=== PATIENT | male | born 1970 | race Caucasian/White ===

== ENCOUNTER 2017-06-27 16:27 | Emergency (ER) | payer BC ==
[~2017-06-27] VITALS: Ht 177.8 cm; Wt 93.8 kg
[2017-06-27 16:30] VITALS: TEMP 36.8; Ht 177.8 cm; Wt 93.8 kg
[2017-06-27] MEDS ORDERED: CEFAZOLIN SOD 1000MG/55 ML D5W IV STA (17:10)
[2017-06-27] MEDS ORDERED: MoRPHine SULFATE 4 MG/ML 1 ML CARP\\VIAL IV STA (17:10)
[2017-06-27 17:35] LABS: BASO % 0.4 %; BASO ABS # 0.05 K/uL (0-0.2); COMPLETE YES; EOS % 0.4 %; HEMATOCRIT 46.5 % (42-52); IG% 0.2 %; LYMPH % 18.1 %; LYMPH ABS # 2.17 K/uL (1.2-3.4); MEAN CELL VOLUME 89.8 fL (80-100); MEAN CORPUSCULAR HEMOGLOBIN 31.7 pg (25-34); MEAN CORPUSCULAR HGB CONC 35.3 g/dl (32-36); MEAN PLATELET VOLUME 9.7 fL (7.4-10.4); MONO % 5.7 %; NEUT % 75.2 %; PLATELET COUNT 218 K/uL (130-400); RED BLOOD COUNT 5.18 M/uL (4.7-6.1); WHITE BLOOD COUNT 11.97 K/uL (4.8-10.8)
[2017-06-27 17:52] LABS: BUN/CREATININE RATIO 15.1 (10-20); CALCIUM 9.7 mg/dl (8.5-10.1); CREATININE 1.2 mg/dl (0.60-1.40); PARTIAL THROMBOPLASTIN RATIO 0.9; PROTHROMBIN TIME (PATIENT) 10.8 SECONDS (9.0-12.0)
--- NOTE | 2017-06-27 17:54 | DIAGNOSTIC IMAGING REPORT ---
RIGHT HAND 3 VIEWS HISTORY: 4TH FINGER FRACTURE, OPEN, CRUSH INJURY Right COMPARISON: None. FINDINGS: Dorsal dislocation at the PIP joint of the fourth finger. This demonstrates millimeters of overlap. Soft tissue swelling within the right ring finger. No fractures identified. No radiopaque foreign bodies. IMPRESSION: Dorsal dislocation at the PIP joint of the right ring finger. No fractures identified. Electronically signed by: Adama Rosales M.D. 06/27/2017 5:53 PM Dictated Date/Time: 06/27/2017 5:52 PM
[2017-06-27] MEDS ORDERED: XYLOCAINE 1%/SOD BICARB 20 ML VIAL INFIL ONE (18:00)
--- NOTE | 2017-06-27 18:17 | EMERGENCY ROOM VISIT NOTE ---
ED Visit Note First contact with patient: 16:46 Chief Complaint: Right fourth Finger Laceration History of Present Illness: This patient is a 47-year-old male who presents to the Emergency Department for evaluation of their finger laceration that occurred at approximately 1:30 PM today. Patient sustained the laceration while splitting wood, states a 200 pound log fell onto his finger. They report a large amount of bleeding initially. They deny any numbness or tingling into the distal extremity. They report significantly decreased range of motion of the affected digit. They have tried ibuprofen for the pain with some relief of their symptoms. Patient rates current discomfort as a 3/10. Patient denies any other injuries. Patient's Tetanus status is currently up-to-date. Medications: No prescribed medications Allergies: No known allergies PMH: No significant past medical history SHx: Lives at home. Current every day smoker, denies alcohol or recreational drug use. ROS: All pertinent positive and negative review of systems are appropriately documented in the History of Present Illness. Physical Exam: VITAL SIGNS - Vital signs and nursing notes were reviewed. GENERAL -47-year-old male, well-appearing appearing and in no acute distress. Communicates well with provider and answers questions appropriately. SKIN - There is a 3 cm long full-thickness laceration noted on the palmar aspect of the proximal fourth finger just below the PIP joint. The edges gape apart with traction. No foreign bodies appreciated. Upon further examination, exposure of flexor tendon is noted. No large vessels or bony structures noted. There is moderate active bleeding noted. MUSCULOSKELETAL - Laceration as described above. + 5/5 strength appreciated of the affected digit. Decreased range of motion of the affected digit due to deformity and pain. NEUROLOGIC - No sensory deficits to the affected finger, sensation intact to sharp and dull. VASCULAR - Capillary refill was brisk. IMAGING: RIGHT HAND 3 VIEWS HISTORY: 4TH FINGER FRACTURE, OPEN, CRUSH INJURY Right COMPARISON: None. FINDINGS: Dorsal dislocation at the PIP joint of the fourth finger. This demonstrates millimeters of overlap. Soft tissue swelling within the right ring finger. No fractures identified. No radiopaque foreign bodies. IMPRESSION: Dorsal dislocation at the PIP joint of the right ring finger. No fractures identified. ED Course: Patient was seen and evaluated by myself. Differential diagnosis includes open fracture, dislocation, tendon injury, foreign body, laceration, among others. The finger is visibly deformed with tenting and pale skin at the deformity. The laceration is deep with exposed tendon and possible bone, moderate amount of bleeding. The patient is neurovascularly intact distal to the laceration, with extension and flexion of the finger also intact. X-ray of the right hand performed, noting a dorsal dislocation of the PIP joint of the right ring finger. The patient gave verbal consent for reduction of the finger. The patient was given IV morphine for pain. Reduction was performed by slight hyperextension and steady distal traction of the finger, which was easily reduced back into place with good alignment and improved pain. Fingers remained neurovascularly intact post-reduction, with pinking up of the finger and resolution of tenting/ pallor. Patient is not able to fully flex and extend finger as well. Successful reduction of the right fourth finger confirmed with repeat x-ray. The patient was covered with IV Ancef for open dislocation/exposed tendon. I did speak on the phone with Dr. Hatch, orthopedics at 6:30 PM, who agrees with my management and plan, and recommends that the patient follow-up in the office tomorrow. Rx for Keflex 7 days to cover for open tendon injury. Costs and benefits of performing primary wound closure versus no repair were discussed with the patient who verbalizes understanding. Verbal consent was obtained prior to performing the procedure. 3 cc of 1% buffered lidocaine was used to perform a digital block of the right fourth digit. The wound was cleansed and prepped in the typical sterile fashion utilizing normal saline and Betadine. The wound was sterilely draped. Once proper anesthetization was established, the wound was further examined and demonstrated fully exposed extensor tendon, which appears to be intact with no laceration to the tendon. The wound was copiously irrigated with normal saline and Betadine. The wound was closed using 6 simple, 4-0 nylon sutures with the wound edges being loosely approximated. Hemostasis achieved. Patient tolerated the procedure well. No complications were met. The wound was cleansed and dressed with a Bacitracin dressing. A metal splint was applied to the finger for immobilization and comfort. I discussed plan for follow-up with orthopedics tomorrow, patient states he would prefer to follow up with his own orthopedic doctor back in [place] when he returns home in 3 days. I stressed to the patient the importance of close follow-up with orthopedics regarding potential tendon injury and concern for developing infection of the finger. Patient was strongly urged to follow up with orthopedics tomorrow, however if he does choose not to follow up with orthopedics, he was urged to contact his orthopedic provider at home regarding his injury, and to return to the emergency department in 1-2 days to have the wound reevaluated and dressing changed. Patient was also educated on worrisome symptoms for sooner return visit to the Emergency Department. He verbalized understanding. Patient discharged to home in good condition. The patient was discussed with Dr. Gonzalez, who agrees with my assessment and plan. Current/Historical Medications No Active Prescriptions or Reported Meds Allergies Coded Allergies: No Known Allergies (Unverified , 06/27/17) Vital Signs Date Time Temp Pulse Resp B/P (MAP) Pulse Ox O2 Delivery O2 Flow Rate FiO2 06/27/17 18:34 64 131/85 96 Room Air 06/27/17 16:30 36.8 74 20 146/93 98 Room Air Laboratory Results 06/27/17 17:24 Red Blood Count 5.18, Mean Corpuscular Volume 89.8, Mean Corpuscular Hemoglobin 31.7, Mean Corpuscular Hemoglobin Concent 35.3, Mean Platelet Volume 9.7, Neutrophils (%) (Auto) 75.2, Lymphocytes (%) (Auto) 18.1, Monocytes (%) (Auto) 5.7, Eosinophils (%) (Auto) 0.4, Basophils (%) (Auto) 0.4, Neutrophils # (Auto) 9.00, Lymphocytes # (Auto) 2.17, Monocytes # (Auto) 0.68, Eosinophils # (Auto) 0.05, Basophils # (Auto) 0.05 06/27/17 17:24 Test 06/27/17 17:24 White Blood Count 11.97 K/uL (4.8-10.8) Red Blood Count 5.18 M/uL (4.7-6.1) Hemoglobin 16.4 g/dL (14.0-18.0) Hematocrit 46.5 % (42-52) Mean Corpuscular Volume 89.8 fL (80-100) Mean Corpuscular Hemoglobin 31.7 pg (25-34) Mean Corpuscular Hemoglobin Concent 35.3 g/dl (32-36) Platelet Count 218 K/uL (130-400) Mean Platelet Volume 9.7 fL (7.4-10.4) Neutrophils (%) (Auto) 75.2 % Lymphocytes (%) (Auto) 18.1 % Monocytes (%) (Auto) 5.7 % Eosinophils (%) (Auto) 0.4 % Basophils (%) (Auto) 0.4 % Neutrophils # (Auto) 9.00 K/uL (1.4-6.5) Lymphocytes # (Auto) 2.17 K/uL (1.2-3.4) Monocytes # (Auto) 0.68 K/uL (0.11-0.59) Eosinophils # (Auto) 0.05 K/uL (0-0.5) Basophils # (Auto) 0.05 K/uL (0-0.2) RDW Standard Deviation 39.9 fL (36.4-46.3) RDW Coefficient of Variation 12.2 % (11.5-14.5) Immature Granulocyte % (Auto) 0.2 % Immature Granulocyte # (Auto) 0.02 K/uL (0.00-0.02) Prothrombin Time 10.8 SECONDS (9.0-12.0) Prothromb Time International Ratio 1.0 (0.9-1.1) Activated Partial Thromboplast Time 23.7 SECONDS (21.0-31.0) Partial Thromboplastin Ratio 0.9 Anion Gap 7.0 mmol/L (3-11) Est Creatinine Clear Calc Drug Dose 86.6 ml/min Estimated GFR () 82.4 Estimated GFR (Non- 71.1 BUN/Creatinine Ratio 15.1 (10-20) Calcium Level 9.7 mg/dl (8.5-10.1) Mild leukocytosis, labs otherwise unremarkable. Medications Administered Medications (Trade) Dose Ordered Sig/Chilo Route Start Time Stop Time Status Last Admin Dose Admin Cefazolin Sodium (Ancef 1000mg/55 ml D5W) 2,000 mg NOW STAT IV 06/27/17 17:10 06/27/17 17:14 DC 06/27/17 17:38 2,000 MG Morphine Sulfate (MoRPHine SULFATE INJ) 4 mg NOW STAT IV 06/27/17 17:10 06/27/17 17:14 DC 06/27/17 17:38 4 MG Departure Information Impression Primary Impression: Laceration of right ring finger with tendon involvement Additional Impression: Open dislocation of right ring finger Dispostion Home / Self-Care Condition GOOD Prescriptions Cephalexin Monohydrate (Keflex) 500 Mg Cap 500 MG PO QID for 7 Days, #28 CAP Prov: Kori Rahman CRNP 06/27/17 Referrals No Doctor, Assigned (PCP) Clint Hatch D.O. Patient Instructions ED Dislocation Finger Redu, ED Laceration Hand, [facility] Additional Instructions You are strongly recommended to follow up with orthopedics tomorrow. You may call the office at 8:30 am and they will arrange an appointment for you. If you choose not to follow with orthopedics tomorrow, then please contact your own orthopedic doctor to schedule an appointment for follow-up and RETURN to the emergency department in 1-2 days for dressing change and wound check. You have received sutures on your right 4th finger. These sutures are NOT dissolvable and WILL need to be removed by a health care provider in 10 days. You can return to the Emergency Department or contact your Primary Care Provider to have the sutures removed. Please wear the splint at all times until the sutures are removed. You may remove to clean the wound and change your bandage. Proper wound care is essential for adequate wound healing and infection prevention. You can shower and clean the wound with soap and water. Do not scour over the wound, pat dry with a towel. Do not submerse the wound (i.e. bathe or dish wash) until the sutures have been removed. You can use an antibiotic ointment with a dressing over the wound for the next 3-4 days. After this time you may leave the wound dry and open to the air. If crust develops over the wound you can use a Q-tip to apply a 1:1 peroxide:water solution to clean the wound. You were prescribed Keflex to be taken 4 times a day for 7 days. This is an antibiotic. All antibiotics have the potential to cause diarrhea. Stop this medication and contact a medical provider if you were to develop any significant adverse side effects including: wheezing, shortness of breath, passing out, vomiting, or a diffuse rash. Always take antibiotics as directed and COMPLETE the ENTIRE course regardless of the improvement of your symptoms. Look for signs of infection of the wound including: increased pain, swelling, foul discharge, streaking, or increased temperature. If any of these are noticed you should return to the Emergency Department immediately for further assessment and treatment. As with any laceration you may have received nerve damage to the surrounding tissues. This damage may or may not be permanent. For pain control, you can use the following [id number] medicines (if >12 yo): - Regular strength (325mg/tab) Tylenol (acetaminophen) 2 tabs every 4-6 hours as needed. Do not exceed 10 tablets in a 24 hour period. Avoid taking more than 3000 mg of Tylenol per day. This includes any other sources of acetaminophen you may take on a regular basis. - Regular strength (200 mg/tab) Advil (ibuprofen) 1-2 tabs every 4-6 hours as needed. Do not exceed a dose of 2400 mg per day. Return to the emergency department if your symptoms worsen despite treatment course outlined above. Problem Qualifiers
--- NOTE | 2017-06-27 18:30 | DIAGNOSTIC IMAGING REPORT ---
RIGHT FOURTH FINGER RADIOGRAPHS CLINICAL HISTORY: Post reduction. COMPARISON: Right hand radiograph June 27, 2017 at 5:43 PM. FINDINGS: Alignment of the right fourth digit PIP joint is anatomic status post reduction. No fracture is identified. IMPRESSION: Anatomic alignment of right fourth digit PIP joint status post reduction. No fracture identified. Electronically signed by: John Hall M.D. 06/27/2017 6:29 PM Dictated Date/Time: 06/27/2017 6:28 PM
[2017-06-27 19:37] VITALS: BP 136/84; PULSE 60; O2SAT 97
[2017-06-27] MEDS ORDERED: CEPH500C PO (19:39)
== END 2017-06-27 19:51 | disposition home or self-care (01) ==
LOC: C.EDB 16:30 → C.EDD 19:51
DX: S63.284A Dislocation of proximal interphalangeal joint of right ring finger, initial encounter (principal); S61.214A Laceration without foreign body of right ring finger without damage to nail, initial encounter; W22.8XXA Striking against or struck by other objects, initial encounter; F17.210 Nicotine dependence, cigarettes, uncomplicated